=== PATIENT | female | born 1990 | race Two or more races ===

== ENCOUNTER 2016-08-21 18:36 | Observation (INO) | payer OTHER ==
[2016-03-23 20:57] VITALS: BP 120/87
[~2016-08-21 18:36] MED LIST: BENZ100C2; DOXY100C2; IBUP-1060; METR500T PO; NITR100C62 PO; ONDA4TAB10 SL; PRED20TA; VENTOLIN HFA18 GM
[2016-08-21 19:18] LABS: BILIRUBIN,URINE NEGATIVE (NEG); GLUCOSE,URINE NEGATIVE (NEG); NITRITE,URINE NEGATIVE (NEG); PROTEIN,URINE NEGATIVE (NEG-TRACE); UROBILINOGEN,URINE 0.2 mg/dL (0.2 mg/dL)
[2016-08-21 19:38] LABS: BACTERIA,URINE 0 /HPF (0-FEW); RBC,URINE 0 /HPF (0-2); SQUAMOUS EPITHELIAL CELL,UR MOD /LPF; WBC,URINE >40 /HPF (0-4)
[2016-08-21] MEDS ORDERED: IV RINGERS,LACTATED 1000ML 1,000 ML IV ONE (20:00)
[2016-08-21] MEDS ORDERED: PNV1TABL25 PO (20:12)
== END 2016-08-21 21:22 | disposition home or self-care (01) ==
LOC: 3 SO LND 18:36
PROVIDERS: ADMIT Obstetrics & Gynecology; ATTEND Obstetrics & Gynecology
DX: O36.8130 Decreased fetal movements, third trimester, not applicable or unspecified (principal); O26.893 Other specified pregnancy related conditions, third trimester; R10.9 Unspecified abdominal pain; Z3A.35 35 weeks gestation of pregnancy
CPT/HCPCS: 81001; G0378; G0379; 87086; J7120

== ENCOUNTER 2016-09-19 05:13 | Inpatient (IN) | payer OTHER ==
[~2016-09-19] VITALS: Ht 154.9 cm; Wt 81.2 kg
[~2016-09-19 05:13] MED LIST changes: +PNV1TABL25 PO
[2016-09-19] MEDS ORDERED: IV RINGERS,LACTATED 1000ML 1,000 ML IV SCH ×2 (05:30→05:45)
[2016-09-19] MEDS ORDERED: LIDOCAINE 1% PF 30 ML VIAL. INJ PRN (05:45)
[2016-09-19] MEDS ORDERED: BUTORPHANOL 2 MG/ML VIAL. IV PRN ×2 (05:45)
[2016-09-19] MEDS ORDERED: 0.9 % SODIUM CHLORIDE 10 ML DISP.SYRIN. IV PRN ×2 (05:45→08:15)
[2016-09-19] MEDS ORDERED: TERBUTALINE 1 MG/ML VIAL. SQ PRN (05:45)
[2016-09-19] MEDS ORDERED: CITRIC ACID/SODIUM CITRATE 30 ML SOLUTION. PO PRN (05:45)
[2016-09-19] MEDS ORDERED: OXYTOCIN 30 UNIT/500 ML PREMIX 500 ML IV PRN ×3 (05:45→08:15)
[2016-09-19] MEDS ORDERED: MAG HYDROX/ALUMINUM HYD/SIMETH 30 ML ORAL.SUSP PO PRN ×2 (05:45→08:15)
[2016-09-19] MEDS ORDERED: CLINDAMYCIN 900MG PREMIX 50 ML IV SCH (06:00)
[2016-09-19 06:12] LABS: BILIRUBIN,URINE NEGATIVE (NEG); GLUCOSE,URINE NEGATIVE (NEG); NITRITE,URINE NEGATIVE (NEG); PROTEIN,URINE NEGATIVE (NEG-TRACE); UROBILINOGEN,URINE 0.2 mg/dL (0.2 mg/dL)
[2016-09-19 06:16] LABS: BACTERIA,URINE MANY /HPF (0-FEW); SQUAMOUS EPITHELIAL CELL,UR MANY /LPF; WBC,URINE 20-40 /HPF (0-4)
[2016-09-19 06:22] LABS: BARBITURATES NEG (NEG); BENZODIAZEPINES NEG (NEG); CANNABINOIDS NEG (NEG); COCAINE NEG (NEG); METHADONE NEG (NEG); OPIATES NEG (NEG); PHENCYCLIDINE NEG (NEG)
--- NOTE | 2016-09-19 07:12 | PDOC1 ---
OB - History Hx of Present Care: Good Care Ultrasounds: Normal mid trimester US Obstetrical Complications: None Medical Complications: None Past Family/Social History * Past Medical, Surgical, Family and Obstetric Histories reviewed from chart. Blood Type: O+ Rubella: Immune RPR/VDRL: Negative GBS Status: Positive HBsAG: Negative OB - Chief Complaint & HPI Date of Admission: Date of Admission: Sep 19, 2016 at 05:13 Chief Complaint/History : 2 Para: 1 EDC: Sep 24, 2016 Reason for admission: active labor Admission Nurse Assessment Rev: Yes Problems: OB - Admission Exam Physical Exam HEENT: Normal, Nasal Mucosa Normal, Oropharynx Normal, Moist Membranes, Fontanelles Normal Heart: Regular Rate Lungs: Clear, Equal Abdomen: Gravid Extremities: Normal Pulses, No tenderness or swelling Reflexes: Normal Cervical Dilatation: 5cm Effacement: 75% Station: 0 Membranes: Intact Amniotic Fluid: Clear Heart Rate: Normal Short Term Variability: Present Contractions on Admission: < 5 Minutes Apart Intensity: Firm Assessment/Plan Assessment/Plan TIUP Labor ACS SARAH PENALOZA MD Sep 19, 2016 07:12
[2016-09-19 07:24] LABS: HEMOGLOBIN 11.7 g/dL (12.0-15.5); RED BLOOD COUNT 3.98 x10^6/uL (3.50-5.40); RED CELL DISTRIBUTION WIDTH 14.2 % (11.5-14.5); WHITE BLOOD COUNT 14.6 x10^3/uL (4.0-11.0)
[2016-09-19] MEDS ORDERED: MAGNESIUM HYDROXIDE 2,400 MG/30 ML ORAL.SUSP. PO PRN (08:15)
[2016-09-19] MEDS ORDERED: SIMETHICONE 80 MG TAB.CHEW PO PRN (08:15)
[2016-09-19] MEDS ORDERED: HYDROCORTISONE 1% TOPICAL OINTMENT 30GM TUBE. TP PRN (08:15)
[2016-09-19] MEDS ORDERED: ACETAMINOPHEN 325 MG TABLET. PO PRN (08:15)
[2016-09-19] MEDS ORDERED: PHENYLEPH/MINERAL OIL/PETROLAT RECTAL OINTMENT 28GM TUBE. RC PRN (08:15)
[2016-09-19] MEDS ORDERED: ZOLPIDEM 5 MG TABLET. PO PRN (08:15)
[2016-09-19] MEDS ORDERED: BENZOCAINE 20% TOPICAL AEROSOL SPRAY 57GM CAN. TP PRN (08:15)
[2016-09-19] MEDS ORDERED: HYDROcodone/APAP 5/325MG 1 TAB TABLET PO PRN (08:15)
[2016-09-19] MEDS ORDERED: diphenhydrAMINE HCL 25 MG CAPSULE PO PRN (08:15)
--- NOTE | 2016-09-19 08:26 | PDOC ---
VAGINAL DELIVERY DATE DATE: 09/19/16 TIME: 08:24 : 2 Para: 1 EDC: Sep 24, 2016 VAGINAL DELIVERY: VTX VACCUM ASSISTED: No PLACENTA: Spontaneous SEX: Male WEIGHT 8/1 Nuchal Cord: No PAIN: Local EPISIOTOMY: No EXTENSION: No EBL 300cc COMPLICATIONS none CONDITION Stable Signs of Intrauterine Infectio: None Shoulder Dystocia: No DIAGNOSIS TIUP del Problems: SARAH PENALOZA MD Sep 19, 2016 08:26
--- NOTE | 2016-09-19 11:02 | PDOC ---
SURGICAL PROGRESS NOTE Subjective Consult dictated. Patient I was asked to see for repair umbilical hernia. All explained and she is reluctant. Will plan to repair Thursday if she decides to have it repaired. We await her decision. Labs Laboratory Tests Test 09/19/16 05:40 09/19/16 05:50 White Blood Count 14.6 x10^3/uL (4.0-11.0) Red Blood Count 3.98 x10^6/uL (3.50-5.40) Hemoglobin 11.7 g/dL (12.0-15.5) Hematocrit 36.0 % (36.0-47.0) Mean Corpuscular Volume 91 fL (79-100) Mean Corpuscular Hemoglobin 29 pg (25-35) Mean Corpuscular Hemoglobin Concent 32 g/dL (31-37) Red Cell Distribution Width 14.2 % (11.5-14.5) Platelet Count 241 x10^3/uL (140-400) Urine Collection Type Unknown Urine Color Yellow Urine Clarity Clear Urine pH 8.0 Urine Specific [place] 1.015 Urine Protein Negative mg/dL (NEG-TRACE) Urine Glucose (UA) Negative mg/dL (NEG) Urine Ketones (Stick) Negative mg/dL (NEG) Urine Blood Large (NEG) Urine Nitrite Negative (NEG) Urine Bilirubin Negative (NEG) Urine Urobilinogen Dipstick 0.2 mg/dL (0.2 mg/dL) Urine Leukocyte Esterase Large (NEG) Urine RBC 11-20 /HPF (0-2) Urine WBC 20-40 /HPF (0-4) Urine Squamous Epithelial Cells Many /LPF Urine Bacteria Many /HPF (0-FEW) Urine Mucus Slight /LPF Urine Opiates Screen Neg (NEG) Urine Methadone Screen Neg (NEG) Urine Barbiturates Neg (NEG) Urine Phencyclidine Screen Neg (NEG) Urine Amphetamine/Methamphetamine Neg (NEG) Urine Benzodiazepines Screen Neg (NEG) Urine Cocaine Screen Neg (NEG) Urine Cannabinoids Screen Neg (NEG) Urine Ethyl Alcohol Neg (NEG) Laboratory Tests Test 09/19/16 05:40 09/19/16 05:50 White Blood Count 14.6 x10^3/uL (4.0-11.0) Red Blood Count 3.98 x10^6/uL (3.50-5.40) Hemoglobin 11.7 g/dL (12.0-15.5) Hematocrit 36.0 % (36.0-47.0) Mean Corpuscular Volume 91 fL (79-100) Mean Corpuscular Hemoglobin 29 pg (25-35) Mean Corpuscular Hemoglobin Concent 32 g/dL (31-37) Red Cell Distribution Width 14.2 % (11.5-14.5) Platelet Count 241 x10^3/uL (140-400) Urine Collection Type Unknown Urine Color Yellow Urine Clarity Clear Urine pH 8.0 Urine Specific [place] 1.015 Urine Protein Negative mg/dL (NEG-TRACE) Urine Glucose (UA) Negative mg/dL (NEG) Urine Ketones (Stick) Negative mg/dL (NEG) Urine Blood Large (NEG) Urine Nitrite Negative (NEG) Urine Bilirubin Negative (NEG) Urine Urobilinogen Dipstick 0.2 mg/dL (0.2 mg/dL) Urine Leukocyte Esterase Large (NEG) Urine RBC 11-20 /HPF (0-2) Urine WBC 20-40 /HPF (0-4) Urine Squamous Epithelial Cells Many /LPF Urine Bacteria Many /HPF (0-FEW) Urine Mucus Slight /LPF Urine Opiates Screen Neg (NEG) Urine Methadone Screen Neg (NEG) Urine Barbiturates Neg (NEG) Urine Phencyclidine Screen Neg (NEG) Urine Amphetamine/Methamphetamine Neg (NEG) Urine Benzodiazepines Screen Neg (NEG) Urine Cocaine Screen Neg (NEG) Urine Cannabinoids Screen Neg (NEG) Urine Ethyl Alcohol Neg (NEG) JANETT CHAPA MD Sep 19, 2016 11:02
[2016-09-19 14:00] VITALS: BP 128/74
[2016-09-19] MEDS ORDERED: IBUPROFEN 800 MG TABLET. PO SCH (14:00)
[2016-09-19] MEDS ORDERED: FERROUS SULFATE 325 MG TABLET. PO SCH (17:00)
[2016-09-19 19:10] VITALS: BP 126/75
[2016-09-19 23:00] VITALS: BP 119/73
--- NOTE | 2016-09-20 01:43 | CONS ---
DATE OF CONSULTATION: I am asked to see this young lady who has just delivered this morning a well alive male child. She has had umbilical hernia from her previous and also for this one and Dr. Benavidez asked me to see her about repairing this hernia at this point. When seen, she does have umbilical hernia. Fascial defect is probably a cm or 2. It is not really painful, but causes some difficulty and pain at times. Her abdomen is large from the , is soft and with no evidence of peritoneal irritation, no organomegaly, etc. The umbilicus is somewhat reducible. The patient had many questions and we did answer them and let them know that most often we do not even admit people to the hospital and the hernia is just a defect in the abdominal wall that we close surgically with sutures. She does not know if she wants a surgery, we had her scheduled for this Thursday, but would await her decision and obviously ____ thoroughly I reiterated that she was not at all pressured to have surgery, if she did not want it that could be fine. We await her decision. IMPRESSION: 1. Umbilical hernia. 2. Stable post vaginal delivery. JANETT CHAPA MD DR: JENNIE/farshad JOB#: [id number] / [id number]
[2016-09-20 05:37] VITALS: BP 120/82
--- NOTE | 2016-09-20 09:49 | PDOC ---
SURGICAL PROGRESS NOTE Subjective Patient has now decided to have the hernia repair. I will plan for 09/22/2016 in the am. Will not use mesh as she is not certain about having more children. Vital Signs Vital Signs Date Time Temp Pulse Resp B/P (MAP) Pulse Ox O2 Delivery O2 Flow Rate FiO2 09/20/16 05:37 98.1 62 18 120/82 (95) 96 Room Air 98.1 Labs Laboratory Tests Test 09/19/16 05:40 09/19/16 05:50 09/20/16 08:25 White Blood Count 14.6 x10^3/uL (4.0-11.0) Red Blood Count 3.98 x10^6/uL (3.50-5.40) Hemoglobin 11.7 g/dL (12.0-15.5) Hematocrit 36.0 % (36.0-47.0) 32.5 % (36.0-47.0) Mean Corpuscular Volume 91 fL (79-100) Mean Corpuscular Hemoglobin 29 pg (25-35) Mean Corpuscular Hemoglobin Concent 32 g/dL (31-37) Red Cell Distribution Width 14.2 % (11.5-14.5) Platelet Count 241 x10^3/uL (140-400) Urine Collection Type Unknown Urine Color Yellow Urine Clarity Clear Urine pH 8.0 Urine Specific [place] 1.015 Urine Protein Negative mg/dL (NEG-TRACE) Urine Glucose (UA) Negative mg/dL (NEG) Urine Ketones (Stick) Negative mg/dL (NEG) Urine Blood Large (NEG) Urine Nitrite Negative (NEG) Urine Bilirubin Negative (NEG) Urine Urobilinogen Dipstick 0.2 mg/dL (0.2 mg/dL) Urine Leukocyte Esterase Large (NEG) Urine RBC 11-20 /HPF (0-2) Urine WBC 20-40 /HPF (0-4) Urine Squamous Epithelial Cells Many /LPF Urine Bacteria Many /HPF (0-FEW) Urine Mucus Slight /LPF Urine Opiates Screen Neg (NEG) Urine Methadone Screen Neg (NEG) Urine Barbiturates Neg (NEG) Urine Phencyclidine Screen Neg (NEG) Urine Amphetamine/Methamphetamine Neg (NEG) Urine Benzodiazepines Screen Neg (NEG) Urine Cocaine Screen Neg (NEG) Urine Cannabinoids Screen Neg (NEG) Urine Ethyl Alcohol Neg (NEG) Laboratory Tests Test 09/20/16 08:25 Hematocrit 32.5 % (36.0-47.0) JANETT CHAPA MD Sep 20, 2016 09:49
[2016-09-20 15:00] VITALS: BP 104/64
--- NOTE | 2016-09-20 16:09 | PDOC ---
Provider Note Provider Note Doing well VSS Uterus NTTP FU in AM SARAH PENALOZA MD Sep 20, 2016 16:09
[2016-09-20 22:48] VITALS: BP 115/77
[2016-09-21 06:26] VITALS: BP 119/81
--- NOTE | 2016-09-21 15:00 | PDOC3 ---
OB DISCHARGE SUMMARY DATE OF ADMISSION: 09/19/16 DATE OF DISCHARGE: 09/21/16 REASON FOR ADMISSION: Induction of labor PROCEDURES: Ultrasound INTRAPARTUM PROCEDURES: Spontanous Vag Deliv PROCEDURES: None OPERATIONS: None DISCHARGE DIAGNOSIS: Term Delivered DISCHARGE INFORMATION: Activity, Diet HOSPITAL COURSE Unremarkable CONDITION AT DISCHARGE Stable SARAH PENALOZA MD Sep 21, 2016 15:00
[2016-09-21] MEDS ORDERED: NAPR500T3 PO (15:02)
[2016-09-21] MEDS ORDERED: HYDR-971 PO (15:02)
[2016-09-21] MEDS ORDERED: OXYC-323 PO (15:25)
[2016-09-21 16:27] VITALS: BP 122/83
[2016-09-22 01:07] LABS: RPR REFLEX Non Reactive (Non Reactive)
[2016-09-22] MEDS ORDERED: fentaNYL PF VIAL 100 MCG/2 ML VIAL IV PRN ×2 (07:00)
[2016-09-22] MEDS ORDERED: IV RINGERS,LACTATED 1000ML 1,000 ML IV SCH (07:00)
[2016-09-22] MEDS ORDERED: LIDOCAINE 1% 1 ML SYRINGE. ID PRN (07:00)
[2016-09-22] MEDS ORDERED: MORPHINE SULFATE 2 MG/ML DISP.SYRIN. IV PRN (07:00)
[2016-09-22] MEDS ORDERED: ONDANSETRON PF 4 MG/2 ML VIAL. IV PRN (07:00)
[2016-09-22] MEDS ORDERED: PROCHLORPERAZINE 10 MG/2 ML VIAL. IV PRN (07:00)
[2016-09-22] MEDS ORDERED: HYDROmorphone 2 MG/ML VIAL IV PRN (07:00)
[2016-09-22] MEDS ORDERED: BUPIVAC MPF-EPI 0.5%-1:200000 30 ML VIAL. ONE (08:25)
== END 2016-09-21 17:45 | disposition home or self-care (01) | DRG 775 ==
LOC: 3 SO LND 05:13 → OBSVTOIN 05:13 → 3 NORTH 13:50
PROVIDERS: ADMIT Specialist; ATTEND Specialist
PROC: 10E0XZZ Delivery of Products of Conception, External Approach (ICD-10-PCS; principal; 2016-09-21)
DX: O34.219 Maternal care for unspecified type scar from previous cesarean delivery (principal); K42.9 Umbilical hernia without obstruction or gangrene; O99.824 Streptococcus B carrier state complicating childbirth; Z37.0 Single live birth; Z3A.39 39 weeks gestation of pregnancy
CPT/HCPCS: 36415; 81001; 85014; 85027; 86593; 86850; 86900; 86901; 87086; G0481; J2590; J3490; J7120

== ENCOUNTER 2016-09-22 10:03 | Day surgery (SDC) | payer OTHER ==
[~2016-09-22 10:03] MED LIST changes: +HYDR-971 PO; +NAPR500T3 PO; +OXYC-323 PO
[2016-09-22] MEDS ORDERED: IV RINGERS,LACTATED 1000ML 1,000 ML IV SCH (10:33)
[2016-09-22] MEDS ORDERED: fentaNYL PF VIAL 100 MCG/2 ML VIAL IV PRN (10:45)
[2016-09-22] MEDS ORDERED: MIDAZOLAM HCL/PF 2 MG/2 ML VIAL. IV PRN (10:45)
[2016-09-22] MEDS ORDERED: LIDOCAINE 1% 1 ML SYRINGE. ID PRN (10:45)
[2016-09-22] MEDS ORDERED: LIDOCAINE 2% PF Vial for OR 5 ML VIAL. ONE (10:51)
[2016-09-22] MEDS ORDERED: PROPOFOL 20 ML IV ONE (10:51)
[2016-09-22] MEDS ORDERED: DEXAMETHASONE SOD PHOS 20 MG/5 ML VIAL. ONE (10:51)
[2016-09-22] MEDS ORDERED: ONDANSETRON PF 4 MG/2 ML VIAL. ONE (10:51)
[2016-09-22] MEDS ORDERED: fentaNYL PF VIAL 100 MCG/2 ML VIAL ONE ×2 (10:51→12:17)
[2016-09-22] MEDS ORDERED: SUCCINYLCHOLINE 200 MG/10 ML VIAL. ONE (10:52)
[2016-09-22] MEDS ORDERED: ROCURONIUM 50 MG/5 ML VIAL. ONE (10:52)
--- NOTE | 2016-09-22 11:19 | PDOC ---
SURGICAL PROGRESS NOTE Subjective Op Note: Surgeon.....................................................Michael Pre op diag................................................incarcerated umbilical hernia Post op dag...............................................same Anesthesia...............................................general Procedure................................................Repair incarcerated umbilical hernia Blood loss...............................................10cc Fluids......................................................see anesthesia sheet Drains......................................................none Condition.................................................Satisfactory Vital Signs Vital Signs Date Time Temp Pulse Resp B/P (MAP) Pulse Ox O2 Delivery O2 Flow Rate FiO2 09/22/16 10:26 98.7 80 16 132/80 97 Room Air 98.7 JANETT CHAPA MD Sep 22, 2016 11:19
[2016-09-22] MEDS ORDERED: BUPIVAC MPF-EPI 0.5%-1:200000 30 ML VIAL. INJ ONE (11:34)
[2016-09-22] MEDS ORDERED: NEOSTIGMINE 10 MG/10 ML VIAL. ONE (12:10)
[2016-09-22] MEDS ORDERED: GLYCOPYRROLATE 1 MG/5 ML VIAL. ONE (12:10)
[2016-09-22] MEDS ORDERED: NEOSTIGMINE METHYLSULFATE 5 MG/5 ML SYRINGE. ONE (12:11)
[2016-09-22] MEDS ORDERED: SEVOFLURANE 61 TO 120 MINUTES. IH ONE (12:12)
[2016-09-22] MEDS ORDERED: KETOROLAC 30 MG/ML INJ FOR OR. INJ ONE (12:23)
[2016-09-22] MEDS ORDERED: MEASLES, MUMPS & RUBELLA VACC 0.5 ML VIAL. VAX SQ ONE (13:00)
[2016-09-22] MEDS: fentaNYL PF VIAL 100 MCG/2 ML VIAL IV PRN ×2 (13:11→13:23)
[2016-09-22 14:10] VITALS: BP 118/68
[2016-09-22] MEDS ORDERED: oxyCODONE/APAP 5/325 1 TAB TABLET ONE ×2 (14:11→14:15)
[2016-09-22] MEDS ORDERED: oxyCODONE/APAP 5/325 1 TAB TABLET PO ONE (14:30)
--- NOTE | 2016-09-23 11:41 | OP ---
DATE OF SURGERY: 09/22/2016 SURGEON: Warner Chapa MD. PREOPERATIVE DIAGNOSIS: Incarcerated umbilical hernia. POSTOPERATIVE DIAGNOSIS: Incarcerated umbilical hernia. ANESTHESIA: General. PROCEDURE: Repair of incarcerated umbilical hernia. DESCRIPTION OF PROCEDURE: The patient had been twice, had a hernia both times and had it before and between the pregnancies. I was asked to see her by her manager branch to repair this and she decided that she did want it repaired. She understood that she may well get again and therefore she and her family decided not to have any mesh whatsoever put in. As such, we proceed with surgery on the day of admission and in fact she had just delivered about 3-4 days prior to that and was doing well. She was properly prepped and draped in the routine fashion. A supraumbilical incision was made in a semicircle fashion and carried down through the skin. We got down to the sac, isolated it with finger dissection, Metzenbaum scissors and simply going around it. We then proceeded to go under the sac around the umbilicus and simply put a [place] drain around there. We then dissected the sac using a 15 blade off of the umbilicus. We opened the sac, making certain not to injure any intraabdominal contents and then cut away the redundant sac. The fascia was quite attenuated and difficult to find, but we did pull it up on either side of it with Charis clamps and then proceeded to close the wound. We did this by putting interrupted 0 Prolene sutures there. We tied these and then holding them up anesthetized the fascia at the incision site for pain control. We then inspected the wound. There was no bleeding and we slowly approximated the deeper tissues and covering the notch with fat and other tissues we buried the notch We then proceeded to close the subcutaneous and we did this with 4-0 Vicryl in all locations. The skin was closed using a subcuticular Vicryl 5-0 and the procedure was now terminated. Sterile Tegaderm dressing was applied and the procedure was terminated. BLOOD LOSS: Probably 10 mL. FLUIDS GIVEN: Can be obtained from the anesthesia sheet. DRAINS: No drains were used. CONDITION OF THE PATIENT: Satisfactory as she is returned to the recovery room. WARNER CHAPA MD DR: JENNIE/farshad JOB#: [id number] / [id number]
--- NOTE | 2016-09-24 10:17 | PATHOLOGY ---
PATHOLOGY REPORT * * * * * * * * FINAL DIAGNOSIS: Fibroadipose tissue "umbilical hernia sac", herniorrhaphy: - Fibroadipose tissue with recent hemorrhagic consistent with an incarcerated hernia. REPORT ELECTRONICALLY SIGNED BY: Maciej Campos M.D. DATE/TIME: 09/24/2016 10:16 * * * * * * * * GROSS PATHOLOGY: Received in formalin labeled "Sunny Barroso, umbilical hernia sac," is a piece of fibroadipose/fibromembranous tissue measuring 7.2 x 3.9 x 1.1 cm. No nodules or lesions are identified. Nurse Midwife/Clinical Instructor tissue is submitted in cassette A1. (OPHELIA; 09/23/2016) INITIAL CPT CODE(S): A; 30025 Professional services performed by [facility] [place] [address] Technical services performed by [facility] at [address] [place] [address] [address], [place] [address]. SPECIMEN(S) RECEIVED: A.Umbilical hernia sac CLINICAL HISTORY: Umbilical hernia, incarcerated PATIENT: SUNNY BARROSO /AGE: 10 1990 (Age: 26) PATIENT #: [id number] ALT CASE #: SPECIMEN COLLECTION DATE: 09/22/2016 SPECIMEN RECEIVED DATE: 09/22/2016 [facility] - [address] [place] [address] - PHONE: [phone] * * * END OF REPORT * * *
== END 2016-09-22 14:38 | disposition home or self-care (01) ==
LOC: SURG 10:03
PROVIDERS: ATTEND Specialist
DX: K42.0 Umbilical hernia with obstruction, without gangrene (principal); J45.909 Unspecified asthma, uncomplicated; E66.9 Obesity, unspecified; Z88.0 Allergy status to penicillin
CPT/HCPCS: 49587; 90707; A4215; J0330; J1100; J1885; J2405; J2704; J2710; J3010; J3490; J7120

== ENCOUNTER 2016-09-23 21:16 | Emergency (ER) | payer OTHER ==
[~2016-09-23] VITALS: Ht 154.9 cm; Wt 79.4 kg
[~2016-09-23 21:16] MED LIST changes: +BENZ100C15; -BENZ100C2
[2016-09-23 22:07] LABS: BASO % 0 % (0-3); EOS % 2 % (0-3); HEMATOCRIT 34.2 % (36.0-47.0); LYMPH # 3.4 x10^3/uL (1.0-4.8); LYMPH % 27 % (24-48); MEAN CORPUSCULAR HEMOGLOBIN 29 pg (25-35); MEAN CORPUSCULAR HGB CONC 32 g/dL (31-37); MEAN CORPUSCULAR VOLUME 91 fL (79-100); MONO % 6 % (0-9); NEUT % 64 % (31-73); PLATELET COUNT 276 x10^3/uL (140-400); RED BLOOD COUNT 3.75 x10^6/uL (3.50-5.40); RED CELL DISTRIBUTION WIDTH 14.4 % (11.5-14.5); WHITE BLOOD COUNT 12.5 x10^3/uL (4.0-11.0)
[2016-09-23 22:20] LABS: CREATININE 0.5 mg/dL (0.6-1.0); GFR 150.3; POTASSIUM 3.3 mmol/L (3.5-5.1)
[2016-09-23 22:27] LABS: ALBUMIN 2.6 g/dL (3.4-5.0); DIRECT BILIRUBIN 0.1 mg/dL (0.0-0.2); TOTAL BILIRUBIN 0.3 mg/dL (0.2-1.0); TOTAL PROTEIN 7.4 g/dL (6.4-8.2)
[2016-09-23] MEDS ORDERED: ALBUTEROL SULFATE 2.5 MG/3 ML NEBU. NEB ONE (22:30)
--- NOTE | 2016-09-23 22:41 | PHYS DOC ---
Past Medical History Past Medical History: Asthma, Bronchitis Past Surgical History: Other Additional Past Surgical Histo: hernia Alcohol Use: None Drug Use: None Adult General Chief Complaint Chief Complaint: SHORTNESS OF BREATH HPI HPI Patient is a 26 year old female who presents with complaint of chest pain and shortness of breath. Patient states that her symptoms started earlier today and have progressively worsened. Patient states that she had hernia repair surgery yesterday with Dr. Rodriguez. Patient also states that she recently delivered her baby 4 days ago in hospital. Patient states that she is having pain in the middle of her chest. Patient has history of asthma and anxiety. Patient denies any other significant past medical history. Patient has not had any associated fevers. Patient denies productive cough. Patient has not taken any medications help with symptoms at this time. Patient rates her pain as 6 out of 10. Review of Systems Review of Systems Constitutional: Denies fever or chills [] Eyes: Denies change in visual acuity, redness, or eye pain [] HENT: Denies nasal congestion or sore throat [] Respiratory: Shortness of breath Cardiovascular: Chest pain, edema [] GI: Denies abdominal pain, nausea, vomiting, bloody stools or diarrhea [] : Denies dysuria or hematuria [] Musculoskeletal: Denies back pain or joint pain [] Integument: Denies rash or skin lesions [] Neurologic: Denies headache, focal weakness or sensory changes [] Current Medications Current Medications Current Medications Medications (Trade) Dose Ordered Sig/Misa Start Time Stop Time Status Last Admin Dose Admin Albuterol Sulfate (Ventolin Neb Soln) 2.5 mg 1X ONCE 09/23/16 22:30 09/23/16 22:31 DC 09/23/16 22:12 2.5 MG Lorazepam (Ativan) 1 mg 1X ONCE 09/23/16 22:30 09/23/16 22:31 DC 09/23/16 22:34 1 MG Allergies Allergies Allergies Coded Allergies Type Severity Reaction Last Updated Verified Penicillins Allergy Intermediate Rash 09/22/16 Yes Physical Exam Physical Exam Constitutional: Alert, afebrile, appears in mild discomfort. [] HENT: Normocephalic, atraumatic, bilateral external ears normal, oropharynx moist, no oral exudates, nose normal. [] Eyes: PERRLA, EOMI, conjunctiva normal, no discharge. [] Neck: Normal range of motion, no tenderness, supple, no stridor. [] Cardiovascular:Heart rate regular rhythm, no murmur [] Lungs & Thorax: None restricted air movement bilaterally, no wheezes, no rales [ ] Abdomen: Bowel sounds normal, soft, no tenderness, no masses, no pulsatile masses. [] Skin: Warm, dry, no erythema, no rash. [] Back: No tenderness, no CVA tenderness. [] Extremities: No tenderness, no cyanosis, no clubbing, ROM intact, 1+ pitting edema bilaterally. [] Neurologic: Alert and oriented X 3, normal motor function, normal sensory function, no focal deficits noted. [] Current Patient Data Vital Signs Vital Signs Date Time Temp Pulse Resp B/P (MAP) Pulse Ox O2 Delivery O2 Flow Rate FiO2 09/23/16 22:13 97 Room Air 09/23/16 21:30 99.7 76 20 140/91 (107) 99.7 Lab Values Laboratory Tests Test 09/23/16 21:30 White Blood Count 12.5 x10^3/uL (4.0-11.0) H Red Blood Count 3.75 x10^6/uL (3.50-5.40) Hemoglobin 11.0 g/dL (12.0-15.5) L Hematocrit 34.2 % (36.0-47.0) L Mean Corpuscular Volume 91 fL (79-100) Mean Corpuscular Hemoglobin 29 pg (25-35) Mean Corpuscular Hemoglobin Concent 32 g/dL (31-37) Red Cell Distribution Width 14.4 % (11.5-14.5) Platelet Count 276 x10^3/uL (140-400) Neutrophils (%) (Auto) 64 % (31-73) Lymphocytes (%) (Auto) 27 % (24-48) Monocytes (%) (Auto) 6 % (0-9) Eosinophils (%) (Auto) 2 % (0-3) Basophils (%) (Auto) 0 % (0-3) Neutrophils # (Auto) 8.1 x10^3uL (1.8-7.7) H Lymphocytes # (Auto) 3.4 x10^3/uL (1.0-4.8) Monocytes # (Auto) 0.7 x10^3/uL (0.0-1.1) Eosinophils # (Auto) 0.3 x10^3/uL (0.0-0.7) Basophils # (Auto) 0.0 x10^3/uL (0.0-0.2) Sodium Level 141 mmol/L (136-145) Potassium Level 3.3 mmol/L (3.5-5.1) L Chloride Level 105 mmol/L (98-107) Carbon Dioxide Level 28 mmol/L (21-32) Anion Gap 8 (6-14) Blood Urea Nitrogen 9 mg/dL (7-20) Creatinine 0.5 mg/dL (0.6-1.0) L Estimated GFR (Cockcroft-Gault) 150.3 Glucose Level 87 mg/dL (70-99) Calcium Level 9.0 mg/dL (8.5-10.1) Magnesium Level 2.0 mg/dL (1.8-2.4) Total Bilirubin 0.3 mg/dL (0.2-1.0) Direct Bilirubin 0.1 mg/dL (0.0-0.2) Aspartate Amino Transferase (AST) 40 U/L (15-37) H Alanine Aminotransferase (ALT) 32 U/L (14-59) Alkaline Phosphatase 189 U/L (46-116) H Total Protein 7.4 g/dL (6.4-8.2) Albumin 2.6 g/dL (3.4-5.0) L Laboratory Tests 09/23/16 21:30 Laboratory Tests 09/23/16 21:30 EKG EKG Interpreted by me: Heart rate 74, sinus rhythm, normal intervals, normal axis, no acute ST/T-wave abnormalities present [] Radiology/Procedures Radiology/Procedures One view AP chest x-ray interpreted by me: No infiltrates, no effusions, normal cardiac silhouette [] Course & Med Decision Making Course & Med Decision Making Pertinent Labs and Imaging studies reviewed. (See chart for details) Patient was given an albuterol treatment and Ativan in the emergency department with improvement in symptoms. The patient's workup is unremarkable for an acute cardiopulmonary cause of patient's symptoms. I suspect that the patient's symptoms are likely due to fluid overload from excessive IV fluids given due to recent spontaneous vaginal delivery and hernia repair surgery. Patient's vital signs are stable at this time. The patient was provided reassurance that her swelling would go down and that her symptoms would expect improve. The patient stated that she was given Percocet after her hernia surgery and states that this medication is too strong for her but that she would still like something to help with pain. The patient was provided with [place] prescription from the emergency department. Advised patient not to take the medications together as this could cause life-threatening drug interaction if taken together. Patient voiced understanding of this. Advised patient follow-up with Dr. Rodriguez in 2 days and return to emergency department for any worsening symptoms. Patient voiced understanding and in agreement with treatment plan. Dragon Disclaimer Dragon Disclaimer This electronic medical record was generated, in whole or in part, using a voice recognition dictation system. Departure Departure Impression: Primary Impression: Postoperative pain Additional Impression: Peripheral edema Disposition: 01 HOME, SELF-CARE Condition: IMPROVED Referrals: NO PCP (PCP) Patient Instructions: Pain Relief Preoperatively and Postoperatively, Peripheral Edema Additional Instructions: Your workup today showed no problems with her heart or lungs. It is suspected that your symptoms are due to excessive IV fluids given to you from your hospitalizations for your baby's delivery and your hernia surgery. Your swelling will go down over the next 2-3 days and will require no further treatment. You are being prescribed hydrocodone due to your difficulty with your Percocet prescription. Please do not take these medications together as they can have potentially life-threatening interactions. Follow-up with Dr. Rodriguez in the next 2 days. Return to the emergency department for any worsening symptoms. Scripts Hydrocodone/Apap 5-325 (NORCO 5-325 TABLET) 1 Each Tablet 1-2 TAB PO Q4-6HRS Y for PAIN, #15 TAB Prov: SALONI ABDUL MD 09/24/16 Problem Qualifiers SALONI ABDUL MD Sep 23, 2016 22:41
--- NOTE | 2016-09-23 22:45 | ACF ---
Admission Forms Criteria ASTHMA Clinical Indications for Admission to Inpatient Care (Place 'X' for any and all applicable criteria): Admission is indicated for ANY ONE of the following (1)(2)(3)(4)(5): [ ]I. Absent or markedly diminished breath sounds (silent chest) [ ]II. Oxygen saturation < 92% [ ]III. PaCO2 = / > 42 mm Hg (5.6 kPa) [ ]IV. Peak expiratory flow rate < 40% of predicted or personal best after treatment. [ ]V. Peak expiratory flow rate < 33% of predicted or personal before after treatment [ ]. Change in mental status [ ]VII. Ventilatory support required [ ]VIII. PaO2 < 60 mm Hg (8.0 kPa) [ ]IX. Cyanosis [ ]X. Cardiac dysrhythmia (e.g., bradycardia) [ ]XI. Hemodynamic instability [ ]XII. Radiographic evidence of complication requiring inpatient treatment (e.g., pneumonia, pneumothorax) [X]XIII. Inpatient admission required rather than observation care (also use Asthma: Observation Care guideline as appropriate) because of ANY ONE of the following: [ ]a) Respiratory finding that is severe or persistent (eg, dyspnea, tachypnea, accessory muscle use) [ ]b) Airflow measurements less than 60% of predicted or personal best that persist (e.g., over 24 hours) or worsen despite treatments [ ]c) Supplemental oxygen or respiratory treatments for over 24 hours that are performable only in acute inpatient setting [X]d) Other condition, treatment or monitoring requiring inpatient admission. Extended stay beyond goal length of stay may be needed for (26)(27)(28): [ ]a) Severe respiratory failure (23) (29) (30) [ ]b) Secondary causes and complications (25) [ ]c) Status asthmaticus [ ]d) Chronic obstructive asthma [ ]e) Older patients (29) [ ]f) Slow resolution [ ]g) Clinically significant exacerbation of comorbidities (eg, titi. heart failure, atrial fibrillation) The original [employer] content created by [employer] has been revised. The portions of the content which have been revised are identified through the use of italic text or in bold, and [facility] [employer] has neither reviewed nor approved the modified material. All other unmodified content is copyright [facility] Please see references footnoted in the original [facility] edition 2016 Admission Criteria Met?: Yes ALDO MAGALLON Sep 23, 2016 22:45
[2016-09-24] MEDS ORDERED: HYDR-971 PO (00:13)
[2016-09-24 00:26] VITALS: BP 128/82
--- NOTE | 2016-09-24 06:52 | EKG ---
[facility] [address] [place] [address] Test Date: 2016-09-23 Test Time: 22:26:22 Pat Name: SUNNY BARROSO Department: Room: Gender: F Solid Waste Collector: : 1990 Requested By: SALONI ABDUL Order Number: [id number] Reading MD: Sharlene Ibanez Measurements Intervals [place] Rate: 74 P: 41 [place]: 146 QRS: 18 QRSD: 76 T: 6 QT: 352 QTc: 391 Interpretive Statements SINUS RHYTHM LEFT ATRIAL ABNORMALITY ABNORMAL ECG RI6.01 No previous ECG available for comparison Electronically Signed On 09-27-2016 18:32:10 CDT by Sharlene Ibanez
--- NOTE | 2016-09-24 07:51 | RAD ---
Indication shortness of breath. History of asthma. A single view of the chest was obtained. Comparison is made to an examination 03/18/2013. The heart, pulmonary vessels and mediastinum appear normal. The lungs are clear. There has not been a significant change compared to the previous exam. IMPRESSION: No acute or focal process. No significant change
== END 2016-09-24 00:44 | disposition home or self-care (01) ==
LOC: ER 21:16
DX: G89.18 Other acute postprocedural pain (principal); R60.0 Localized edema; R07.89 Other chest pain; J45.909 Unspecified asthma, uncomplicated; Z88.0 Allergy status to penicillin
CPT/HCPCS: 36415; 71010; 80048; 80076; 83735; 85027; 93005; 94250; 94640; 96374; 99285; J2060